=== PATIENT | male | born 1945 | race African-American/Black ===

== ENCOUNTER 2018-03-08 06:11 | Day surgery (SDC) | payer MEDICARE, MEDICAID ==
--- NOTE | 2018-03-05 09:22 | Pre-Procedure Note/Attestation ---
Pre-Procedure Note/Attestation Complete Prior to Procedure Planned Procedure: right Procedure Narrative: phaco with IOL Indications for Procedure Pre-Operative Diagnosis: cataract Attestation I attest that I discussed the nature of the procedure; its benefits; risks and complications; and alternatives (and the risks and benefits of such alternatives ), prior to the procedure, with the patient (or the patient's legal veterans employment representative). I attest that, if there was a reasonable possibility of needing a blood transfusion, the patient (or the patient's legal veterans employment representative) was given the [facility] standardized written summary, pursuant to the Carlitos [place] Blood Safety Act ([place] Health and Safety Code # 1645, as amended). I attest that I re-evaluated the patient just prior to the surgery and that there has been no change in the patient's H&P, except as documented below: KAILEE MCNULTY Mar 05, 2018 09:22
--- NOTE | 2018-03-05 09:23 | Opthalmology H&P ---
Ophthalmology H&P H&P Chief Complaint: decreased vision in right eye HPI Vision Affects Ability to: read, focus/use eyes together, manage personal affairs HPI Narrative blurry vision Exam Visual Acuity: OD: 20/60 OS: 20/60 Tension: OD: 12 OS: 13 Eye Exam: normal OU: external exam, palpebral fissure-width, marginal reflex distance, levator function, corneas, anterior chambers, fundus exam; findings: lens - OD: ns OS: ns Assessment/Plan Diagnosis: (1) Nuclear age-related cataract, right eye Treatment Plan: cataract extraction w/ lens implant Goals of Treatment: improvement of vision, enhance quality of life Attestation Attestation The risks and benefits of the surgery as well as alternative procedures were explained to the patient in detail. KAILEE MCNULTY Mar 05, 2018 09:23
[~2018-03-08] VITALS: Ht 185.4 cm; Wt 84.8 kg
[2018-03-08] VITALS (9 sets, daily range): BP systolic 133–152; BP diastolic 80–90
[~2018-03-08 06:11] MED LIST: ASPIR 8181 MG ORAL; COLACE100 MG ORAL; GABAPENTIN300 MG ORAL; NORVASC10 MG ORAL; PRILOSEC OTC20 MG ORAL; SIMVASTATIN20 MG ORAL; TAMSULOSIN HCL0.4 MG ORAL
[2018-03-08] MEDS ORDERED: Maxitrol Opth Oint 3.5gm ONE (07:00)
[2018-03-08] MEDS ORDERED: Proparacaine 0.5% Opth Soln 15ml RIGHT EYE ONE (07:00)
[2018-03-08] MEDS ORDERED: Tetracaine 0.5% Opth 4ml Soln RIGHT EYE ONE (07:00)
[2018-03-08] MEDS ORDERED: Pred Forte 1% Opth Susp 1ml ONE (07:00)
[2018-03-08] MEDS ORDERED: Dexamethasone 4mg/ml vial ONE (07:00)
[2018-03-08] MEDS ORDERED: Akten 3.5% 1ml Btl RIGHT EYE ONE (07:00)
[2018-03-08] MEDS: Cyclopentolate 1% Opth Sol 2ml RIGHT EYE SCH ×3 (07:09→07:33)
[2018-03-08] MEDS: Tobramycin Op Soln 0.3% 5ml RIGHT EYE SCH ×3 (07:09→07:33)
[2018-03-08] MEDS: Phenylephrine 10% Opth Soln 5ml RIGHT EYE SCH ×3 (07:10→07:33)
[2018-03-08] MEDS: Tropicamide 1% Opth 15ml Soln RIGHT EYE SCH ×3 (07:10→07:33)
[2018-03-08] MEDS: Diclofenac Sod 0.1% Op Soln RIGHT EYE SCH ×3 (07:11→07:33)
[2018-03-08] MEDS ORDERED: NS Irrig 1000ml ONE (09:00)
[2018-03-08] MEDS ORDERED: Sterile Water Irrig 1000ml IRRIG ONE (09:00)
[2018-03-08] MEDS ORDERED: LR 1000ml ONE (09:00)
[2018-03-08] MEDS ORDERED: Pilocarpine 2% Opth 15ml Soln ONE (09:06)
[2018-03-08] MEDS ORDERED: EPINEPHrine 1mg/1ml Amp ONE (09:06)
[2018-03-08] MEDS ORDERED: Lidocaine 4% Amp ONE (09:06)
[2018-03-08] MEDS ORDERED: BSS 500ml btl ONE (09:06)
[2018-03-08] MEDS ORDERED: BSS 15ml BTL ONE (09:07)
[2018-03-08] MEDS ORDERED: Sodium Hyaluronate 14 mg/ml 0.85ml ONE (09:07)
[2018-03-08] MEDS ORDERED: Midazolam 2mg/2ml Inj ONE ×2 (09:10→09:54)
[2018-03-08] MEDS ORDERED: Povidone-Iodine 5% opth solution ONE (09:17)
--- NOTE | 2018-03-08 09:24 | Anethesia Preoperative Eval ---
Anesthesia Pre-op PMH/ROS General Date of Evaluation: Mar 08, 2018 Time of Evaluation: 08:05 Anesthesiologist: ASA Score: ASA 2 Mallampati Score Class I : Soft palate, uvula, fauces, pillars visible Class II: Soft palate, uvula, fauces visible Class III: Soft palate, base of uvula visible Class IV: Only hard plate visible Mallampati Classification: Class II Surgeon: paradise Diagnosis: cataract right eye Surgical Procedure: cataract extaction w/ iol implant right eye Anesthesia History: none Family History: no anesthesia problems Allergies: Coded Allergies: No Known Allergies (Unverified , 03/05/18) Medications: see eMAR Past Medical History Cardiovascular: Reports: HTN; Denies: CAD, SD, valve dz, arrhythmia, other Pulmonary: Denies: asthma, COPD, MIKE, other Gastrointestinal/Genitourinary: Denies: GERD, CRI, ESRD, other Neurologic/Psychiatric: Denies: dementia, CVA, depression/anxiety, TIA, other Endocrine: Denies: DM, hypothyroidism, steroids, other HEENT: Reports: cataract (L), cataract (R); Denies: glaucoma, [place] (L), [place] (R), other Hematology/Immune: Denies: anemia, DVT, bleeding disorder, other Musculoskeletal/Integumentary: Denies: OA, RA, DJD, DDD, edema, other Anesthesia Pre-op Phys. Exam Physician Exam Last Vital Signs Date Time Temp Pulse Resp B/P (MAP) Pulse Ox O2 Delivery O2 Flow Rate FiO2 03/08/18 07:24 98.0 68 18 152/88 100 Room Air 98.0 Constitutional: NAD Cardiovascular: RRR Respiratory: CTA Gastrointestinal: S/NT/ND Airway Exam Mallampati Score: Class II MO: full ROM: full Teeth: missing Adriane Proctor M.D. Mar 08, 2018 09:24
[2018-03-08] MEDS ORDERED: LR 1000ml 1,000 ML IVLG SCH (09:36)
[2018-03-08] MEDS ORDERED: fentaNYL 100 mcg/2 mL IV PRN (09:45)
[2018-03-08] MEDS ORDERED: DiphenhydrAMINE 50mg/ml Inj IVP PRN (09:45)
[2018-03-08] MEDS ORDERED: Labetalol 5mg/ml 20ml vial IV PRN (09:45)
--- NOTE | 2018-03-08 10:16 | Immediate Post-Op Evaluation ---
Immediate Post-Op Evalulation Immediate Post-Op Evalulation Procedure: cataract extraction w/ iol implant Date of Evaluation: Mar 08, 2018 Time of Evaluation: 10:08 IV Fluids: LR 30ml Blood Products: 0 Estimated Blood Loss: 0 Urinary Output: 0 Blood Pressure Systolic: 136 Blood Pressure Diastolic: 85 Pulse Rate: 80 Respiratory Rate: 16 O2 Sat by Pulse Oximetry: 100 Temperature (Fahrenheit): 97.2 Pain Score (1-10): 0 Nausea: No Vomiting: No Complications none Patient Status: awake, patent, none Hydration Status: adequate Drug: none Adriane Proctor M.D. Mar 08, 2018 10:16
--- NOTE | 2018-03-08 10:47 | 48 Hour Post Anesthesia Eval ---
Post Anesthesia Evaluation Procedure: cataract extraction w/ iol implant Date of Evaluation: Mar 08, 2018 Time of Evaluation: 10:38 Blood Pressure Systolic: 136 0: 85 Pulse Rate: 77 Respiratory Rate: 19 Temperature (Fahrenheit): 97.2 O2 Sat by Pulse Oximetry: 99 Airway: patent Nausea: No Vomiting: No Pain Intensity: 0 Hydration Status: adequate Mental Status/LOC: patient returned to baseline Post-Anesthesia Complications: none Follow-up care needed: ready to discharge Adriane Proctor M.D. Mar 08, 2018 10:47
--- NOTE | 2018-03-09 09:09 | Brief Operative Note ---
Immediate Post Operative Note Operative Note Chief Complaint: blurry vision Pre-op Diagnosis: cataract, OD Procedure: phaco with IOL, OD Post-op Diagnosis: Pseudophakia Post-op Diagnosis: same as pre-op Findings: consistent w/pre-op dx studies Surgeon: Monse Anesthesiologist: Specimen: none Complications: none Fluids: LR Estimated Blood Loss: none Drains: none Implant(s) used?: Yes KAILEE MCNULTY Mar 09, 2018 09:09
--- NOTE | 2018-03-11 13:51 | Operative Note - PDOC ---
Operative Note Operative Note Date of Operation/Procedure: Mar 08, 2018 Chief Complaint: blurry vision Pre-op Diagnosis: cataract, OD Procedure: phaco with IOL, OD Post-op Diagnosis: Pseudophakia Post-op Diagnosis: same as pre-op Operative Findings: consistent w/pre-op dx studies Surgeon: Monse Anesthesiologist: Specimen: none Complications: none Fluids: LR Estimated Blood Loss: none Drains: none Implant(s) used?: Yes Indications for Procedure cataract Description of Procedure This patient has been complaining visually significant cataract in the affected eye with the best corrected visual acuity under moderate glare conditions worse. The patient complains of difficulties with glare in performing activities of daily living and wants to manage personal affairs with comfort and accuracy and see well enough to move with safety at home and outdoors. The risks, benefits and alternatives of the procedure were discussed with the patient in the office prior to scheduling surgery. All questions from the patient were answered after the surgical procedure was explained in detail. The risks of the procedure as explained to the patient include, but are not limited to, pain, infection, bleeding, loss of vision, retinal detachment, need for further surgery, loss of lens nucleus, double vision, etc. Alternative procedures were discussed which include, to do nothing or seek a second opinion. Informed consent for this procedure was obtained from the patient. The patient was referred to a primary care physician for a cardiopulmonary clearance prior to surgery, after proper evaluation was done patient was properly scheduled for outpatient surgery. The patient was brought to the operating room where the anesthesiologist established I.V. lines and cardiac monitoring leads. Mild intravenous sedation was administered. The patient was then prepared with a 5% solution of povidone -iodine to the conjunctival fornix and lashes, and a 5% solution of povidone- iodine to the lids and periorbital skin. The patient was then draped in the usual sterile fashion. A lid speculum was then placed in the operative eye. A keratome blade was then used to create a biplanar incision into the anterior chamber. Viscoelastics was then instilled into the anterior chamber. A capsulorrhexis was then fashioned with an utrata forceps A G 27 cannula was used to hydrodissecte and hydro delineate the lens nucleus. Paracentesis incision was made at 3 o'clock with sharp blade. The phacoemulsification unit, after being properly adjusted and tested, was then used to emulsify the nucleus followed by aspiration and irrigation of residual cortical material. [place] was then instilled into the anterior chamber. The corneal wound was then enlarged to the size of the optic with the paulo keratome blade. The intraocular lens was then inspected for right power and size and thought to be satisfactory. Then the lens was gently placed in the capsular bag. Positioning within the capsular bag was confirmed by direct visualization. Optic centration was accomplished with a [place] hook. Viscoelastics was removed from the anterior chamber using the irrigation and aspiration unit. The corneal wound was then tested for leaks and none were found. The lid speculum were then removed. Sponge and needle counts were correct. An eye patch and shield were placed over the operative eye. The patient was taken to the recovery room in stable condition. There were no complications. The patient tolerated the procedure well. The patient was then transferred to the ambulatory surgery unit in stable and satisfactory condition , was given detailed written instructions and asked to follow up in the office the next day. KAILEE MCNULTY Mar 11, 2018 13:51
== END 2018-03-08 11:30 | disposition home or self-care (01) ==
LOC: SUR 06:11
DX: H25.11 Age-related nuclear cataract, right eye (principal); I10 Essential (primary) hypertension; J44.9 Chronic obstructive pulmonary disease, unspecified; Z87.891 Personal history of nicotine dependence; K21.9 Gastro-esophageal reflux disease without esophagitis
CPT/HCPCS: 66984; J0171; J1100; J2250; J3370; J7120; V2632; 94003; 94150

== ENCOUNTER 2020-11-20 06:20 | Day surgery (SDC) | payer MEDICARE, MEDICAID ==
--- NOTE | 2020-11-13 15:06 | Opthalmology H&P ---
Ophthalmology H&P H&P Chief Complaint: decreased vision in left eye HPI Vision Affects Ability to: read, manage personal affairs Past Ocular History: other - [place] OU HPI Narrative Blurry vision Exam Visual Acuity: OD 20/25 OS 20/50 Tension: OD 12 OS 12 Eye Exam: normal OU: external exam, palpebral fissure-width, marginal reflex distance, levator function, corneas, anterior chambers, fundus exam; findings: lens - Pseudo OD, NS Cataracts OS Assessment/Plan Treatment Plan: cataract extraction w/ lens implant Goals of Treatment: improvement of vision, enhance quality of life Attestation Attestation The risks and benefits of the surgery as well as alternative procedures were explained to the patient in detail. Anupam Shea MD Nov 13, 2020 15:06
--- NOTE | 2020-11-13 15:10 | Pre-Procedure Note/Attestation ---
Pre-Procedure Note/Attestation Complete Prior to Procedure Planned Procedure: left Procedure Narrative: Cataract extraction with IOL implant left eye Indications for Procedure Pre-Operative Diagnosis: Nuclear sclerotic cataract left eye Attestation I attest that I discussed the nature of the procedure; its benefits; risks and complications; and alternatives (and the risks and benefits of such alternatives), prior to the procedure, with the patient (or the patient's legal bilingual inside sales representative). I attest that, if there was a reasonable possibility of needing a blood transfusion, the patient (or the patient's legal bilingual inside sales representative) was given the [facility] standardized written summary, pursuant to the Carlitos [place] Blood Safety Act ([place] Health and Safety Code # 1645, as amended). I attest that I re-evaluated the patient just prior to the surgery and that there has been no change in the patient's H&P, except as documented below: Anupam Shea MD Nov 13, 2020 15:10
[~2020-11-20] VITALS: Ht 185.4 cm; Wt 68.0 kg
[2020-11-20] VITALS (7 sets, daily range): BP systolic 140–170; BP diastolic 84–93
[2020-11-20] MEDS: Tropicamide 1% Opth 15ml Soln LEFT EYE SCH ×3 (06:56→07:07)
[2020-11-20] MEDS: Phenylephrine 10% Opth Soln 5ml LEFT EYE SCH ×3 (06:56→07:08)
[2020-11-20] MEDS ORDERED: Akten 3.5% 1ml Btl LEFT EYE ONE (07:00)
[2020-11-20] MEDS ORDERED: Tetracaine 0.5% Opth 4ml Soln LEFT EYE ONE (07:00)
[2020-11-20] MEDS ORDERED: Proparacaine 0.5% Opth Soln 15ml LEFT EYE ONE (07:00)
--- NOTE | 2020-11-20 08:28 | Anethesia Preoperative Eval ---
Anesthesia Pre-op PMH/ROS General Date of Evaluation: Nov 20, 2020 Time of Evaluation: 09:09 Anesthesiologist: Palmer ASA Score: ASA 3 Mallampati Score Class I : Soft palate, uvula, fauces, pillars visible Class II: Soft palate, uvula, fauces visible Class III: Soft palate, base of uvula visible Class IV: Only hard plate visible Mallampati Classification: Class II Surgeon: Monse Diagnosis: Cataract OS Surgical Procedure: Cat Ext IOL OS Anesthesia History: none Family History: no anesthesia problems Allergies: Coded Allergies: No Known Allergies (Unverified , 11/16/20) Medications: see eMAR Patient NPO?: Yes Past Medical History Cardiovascular: Reports: HTN, other - HL Gastrointestinal/Genitourinary: Reports: GERD HEENT: Reports: cataract (L), cataract (R) Anesthesia Pre-op Phys. Exam Physician Exam Last Vital Signs Date Time Temp Pulse Resp B/P (MAP) Pulse Ox O2 Delivery O2 Flow Rate FiO2 11/20/20 07:00 97.5 71 18 170/88 100 Room Air Constitutional: NAD Neurologic: CN 2-12 intact Cardiovascular: RRR Respiratory: CTA Gastrointestinal: S/NT/ND Airway Exam Mallampati Score: Class II MO: limited ROM: limited Teeth: missing Anesthesia Pre-op A/P Risk Assessment & Plan Assessment: ASA 3 Plan: TIVA Status Change Before Surgery: Odin Ye MD Nov 20, 2020 08:28
--- NOTE | 2020-11-20 08:28 | 48 Hour Post Anesthesia Eval ---
Post Anesthesia Evaluation Procedure: Cat Ext IOL OS Date of Evaluation: Nov 20, 2020 Time of Evaluation: 12:23 Blood Pressure Systolic: 164 0: 93 Pulse Rate: 81 Respiratory Rate: 18 Temperature (Fahrenheit): 97.7 O2 Sat by Pulse Oximetry: 100 Airway: patent Nausea: No Vomiting: No Pain Intensity: 1 Hydration Status: adequate Cardiopulmonary Status: Stable Mental Status/LOC: patient returned to baseline Follow-up Care/Observations: 0 Post-Anesthesia Complications: 0 Follow-up care needed: ready to discharge Odin Chakraborty MD Nov 20, 2020 08:28
--- NOTE | 2020-11-20 08:28 | Immediate Post-Op Evaluation ---
Immediate Post-Op Evalulation Immediate Post-Op Evalulation Procedure: Cat Ext IOL OS Date of Evaluation: Nov 20, 2020 Time of Evaluation: 10:15 IV Fluids: 500 LR Blood Products: 0 Estimated Blood Loss: 1 Urinary Output: 0 Blood Pressure Systolic: 151 Blood Pressure Diastolic: 93 Pulse Rate: 72 Respiratory Rate: 16 O2 Sat by Pulse Oximetry: 100 Temperature (Fahrenheit): 97.6 Pain Score (1-10): 1 Nausea: No Vomiting: No Complications 0 Patient Status: awake, reacts, patent, none Hydration Status: adequate Odin Chakraborty MD Nov 20, 2020 08:28
[2020-11-20] MEDS ORDERED: Midazolam 2mg/2ml Inj IVP PRN (08:30)
[2020-11-20] MEDS ORDERED: Ketorolac 30mg Inj IV PRN ×2 (08:30)
[2020-11-20] MEDS ORDERED: HYDROcodone/Acetamin 7.5/325 tab ORAL PRN (08:30)
[2020-11-20] MEDS ORDERED: Labetalol 5mg/ml 20ml vial IV PRN (08:30)
[2020-11-20] MEDS ORDERED: Metoclopramide 10mg/2ml Inj IVP PRN (08:30)
[2020-11-20] MEDS ORDERED: LR 1000ml 1,000 ML IVLG SCH (08:30)
[2020-11-20] MEDS ORDERED: HYDROcodone/Acetamin 5/325 tab ORAL PRN (08:30)
[2020-11-20] MEDS ORDERED: fentaNYL 100 mcg/2 mL IV PRN (08:30)
[2020-11-20] MEDS ORDERED: Atropine Sulfate 0.4mg/ml inj IVP PRN (08:30)
[2020-11-20] MEDS ORDERED: LORazepam Inj 2mg/ml 1ml IV PRN (08:30)
[2020-11-20] MEDS ORDERED: oxyCODONE HCL/Acetaminophen 5/325mg ORAL PRN (08:30)
[2020-11-20] MEDS ORDERED: DiphenhydrAMINE 50mg/ml Inj IVP PRN (08:30)
[2020-11-20] MEDS ORDERED: Hydromorphone 0.5mg/0.5ml inj IVP PRN (08:30)
[2020-11-20] MEDS ORDERED: Meperidine 25mg/1ml Inj (FOR RIGORS ONLY) IV PRN (08:30)
[2020-11-20] MEDS ORDERED: Midazolam 2mg/2ml Inj ONE (08:55)
[2020-11-20] MEDS ORDERED: Sterile Water Irrig 1000ml IRRIG ONE (09:00)
[2020-11-20] MEDS ORDERED: Lidocaine 1% MPF 10mg/ml 5ml ONE (09:00)
[2020-11-20] MEDS ORDERED: NS Irrig 1000ml ONE (09:00)
[2020-11-20] MEDS ORDERED: LR 1000ml ONE (09:00)
[2020-11-20] MEDS ORDERED: EPINEPHrine 1mg/1ml Amp ONE (09:04)
[2020-11-20] MEDS ORDERED: BSS 500ml btl ONE (09:04)
[2020-11-20] MEDS ORDERED: BSS 15ml BTL ONE (09:05)
[2020-11-20] MEDS ORDERED: Sodium Hyaluronate 10 mg/ml 0.85ml ONE (09:05)
[2020-11-20] MEDS ORDERED: Povidone-Iodine 5% opth solution ONE (09:05)
--- NOTE | 2020-11-20 16:09 | Brief Operative Note ---
Immediate Post Operative Note Operative Note Chief Complaint: Blurry vision Pre-op Diagnosis: Nuclear sclerotic cataract left eye Procedure: Cataract extraction with IOL implant left eye Post-op Diagnosis: Pseudo OS Findings: consistent w/pre-op dx studies Surgeon: Anupam Shea MD Anesthesiologist: Odin Chakraborty MD Anesthesia: MAC Specimen: none Complications: none Condition: stable Fluids: LR Estimated Blood Loss: none Drains: none Implant(s) used?: Yes - IOL-OS Anupam Shea MD Nov 20, 2020 16:09
--- NOTE | 2020-11-20 16:11 | Operative Note - PDOC ---
Operative Note Operative Note Date of Operation/Procedure: Nov 20, 2020 Chief Complaint: Blurry vision Pre-op Diagnosis: Nuclear sclerotic cataract left eye Procedure: Cataract extraction with IOL implant left eye Post-op Diagnosis: Pseudo OS Operative Findings: consistent w/pre-op dx studies Surgeon: Anupam Shea MD Anesthesiologist: Odin Chakraborty MD Anesthesia: MAC Specimen: none Complications: none Condition: stable Fluids: LR Estimated Blood Loss: none Drains: none Implant(s) used?: Yes - IOL-OS Indications for Procedure Nuclear sclerotic cataract left eye Description of Procedure This patient has been complaining visually significant cataract in the left eye with the best corrected visual acuity of 20/50 under moderate glare conditions worse. The patient complains of difficulties with glare in performing activities of daily living and wants to manage personal affairs with comfort and accuracy and see well enough to move with safety at home and outdoors. The risks, benefits and alternatives of the procedure were discussed with the patient in the office prior to scheduling surgery. All questions from the patient were answered after the surgical procedure was explained in detail. The risks of the procedure as explained to the patient include, but are not limited to, pain, infection, bleeding, loss of vision, retinal detachment, need for further surgery, loss of lens nucleus, double vision, etc. Alternative procedures were discussed which include, to do nothing or seek a second opinion. Informed consent for this procedure was obtained from the patient. The patient was referred to a primary care physician for a cardiopulmonary clearance prior to surgery, after proper evaluation was done patient was properly scheduled for outpatient surgery. The patient was brought to the operating room where the anesthesiologist established I.V. lines and cardiac monitoring leads. Mild intravenous sedation was administered. The patient was then prepared with a 5% solution of povidone-iodine to the conjunctival fornix and lashes, and a 5% solution of povidone-iodine to the lids and periorbital skin. The patient was then draped in the usual sterile fashion. A lid speculum was then placed in the operative eye. A keratome blade was then used to create a biplanar incision into the anterior chamber. Viscoelastics was then instilled into the anterior chamber. A 3-mm single pass clear corneal incision was made just anterior to the vascular arcade of the temporal limbus using a keratome. Anterior capsulorrhexis was created. The nucleus was hydrodissected and hydrodelineated, and was freely movable in the capsular bag. The nucleus was then phacoemulsified. Following the deep groove formation, the lens was split bimanually and epicortex removed under vacuum burst-mode phacoemulsification. Peripheral cortex was removed with the irrigation and aspiration handpiece. The capsular bag was expanded with viscoelastic. The intraocular lens was then inspected for right power and size and thought to be satisfactory. The implant was inspected under the microscope and found to be free of defects. The implant was inserted into the cartridge system under viscoelastic and placed in the capsular bag. The trailing haptic was positioned with the cartridge system. Viscoelastics was removed from the anterior chamber using the irrigation and aspiration unit. The corneal wound was then tested for leaks and none were found. The lid speculum were then removed. Sponge and needle counts were correct. An eye patch and shield were placed over the operative eye. The patient was taken to the recovery room in stable condition. There were no complications. The patient tolerated the procedure well. The patient was then transferred to the ambulatory surgery unit in stable and satisfactory condition, was given detailed written instructions and asked to follow up in the office the next day. Anupam Shea MD Nov 20, 2020 16:11
== END 2020-11-20 11:00 | disposition home or self-care (01) ==
LOC: SUR 06:20
DX: H25.12 Age-related nuclear cataract, left eye (principal); I10 Essential (primary) hypertension; K21.9 Gastro-esophageal reflux disease without esophagitis
CPT/HCPCS: 66984; 94003; J0171; J2250; J2704; J3370; J7120; U0004; V2632; 94150